=== PATIENT | female | born 1970 ===

== ENCOUNTER 2023-04-17 14:51 | Inpatient (IN) | payer OTHER ==
[~2023-04-17] VITALS: Ht 160 cm; Wt 90.7 kg
[2023-04-18] MEDS ORDERED: TOPROL XL100 M1 PO (13:54)
[2023-04-18] MEDS ORDERED: CRESTOR20 MG PO (13:54)
[2023-04-18] MEDS ORDERED: NEXIUM40 M1 PO (13:54)
[2023-04-25] MEDS ORDERED: HYOSCYAMINE0.125 M1 SL (10:48)
[2023-04-25] MEDS ORDERED: TRAM1TAB98 PO (10:49)
[2023-04-25] MEDS ORDERED: PEPCID AC20 MG PO (10:49)
== END 2023-04-25 12:15 | disposition home or self-care (01) | DRG 331 ==
LOC: SURH 04-22 07:00 → O/R 04-22 07:03 → SURH 04-22 10:00
PROVIDERS: ADMIT Surgery; ATTEND Surgery
PROC: 0DBP4ZZ Excision of Rectum, Percutaneous Endoscopic Approach (ICD-10-PCS; 2023-04-22)
PROC: 0DJD8ZZ Inspection of Lower Intestinal Tract, Via Natural or Artificial Opening Endoscopic (ICD-10-PCS; 2023-04-22)
PROC: 0DTN4ZZ Resection of Sigmoid Colon, Percutaneous Endoscopic Approach (ICD-10-PCS; principal; 2023-04-22 07:00)
DX: K57.32 Diverticulitis of large intestine without perforation or abscess without bleeding (principal); R19.4 Change in bowel habit; G47.30 Sleep apnea, unspecified; I11.9 Hypertensive heart disease without heart failure; N73.6 Female pelvic peritoneal adhesions (postinfective); N99.4 Postprocedural pelvic peritoneal adhesions